=== PATIENT | male | born 1995 | race African-American/Black ===

== ENCOUNTER 2023-06-14 19:22 | Day surgery (SDC) | payer OTHER ==
[~2023-06-14] VITALS: Ht 170.2 cm; Wt 70.0 kg
[2023-06-14] MEDS: NS 1,000 ML IV ONE (20:10)
[2023-06-14] MEDS: MORPHINE 4 MG/ML 1ML VIAL IV ONE ×2 (20:13→21:22)
[2023-06-14] MEDS: ONDANSETRON 4MG 2ML VIAL IV ONE (20:14)
[2023-06-14] MEDS ORDERED: ISOVUE-370 76% 100ML VIAL As Ordered ONE (20:18)
[2023-06-14 20:21] LABS: BASO % 0.1 % (0.0-1.0); EOS % 0.1 % (0.0-3.0); HEMATOCRIT 37.8 % (42.0-52.0); HEMOGLOBIN 12.9 g/dl (13.5-17.5); LYMPH # 1.1 10^3/uL (1.5-5.0); LYMPH % 5.8 % (24.0-44.0); MEAN CORPUSCULAR HEMOGLOBIN 30.1 pg (27.0-33.0); MEAN CORPUSCULAR HGB CONC 34.1 g/dl (32.0-36.5); MEAN CORPUSCULAR VOLUME 88.3 fl (80.0-96.0); MONO # 1.1 10^3/uL (0.0-0.8); MONO % 6.2 % (2.0-8.0); NEUTROPHILS # 15.7 10^3/uL (1.5-8.5); NEUTROPHILS % 87.3 % (36.0-66.0); PLATELET COUNT, AUTOMATED 202 10^3/uL (150-450); RED BLOOD COUNT 4.28 10^6/uL (4.30-6.10)
[2023-06-14 20:48] LABS: ALBUMIN 3.9 G/DL (3.2-5.2); BILIRUBIN,DIRECT 0.3 MG/DL (<0.4); BILIRUBIN,TOTAL 0.9 MG/DL (0.3-1.2); TOTAL PROTEIN 6.9 G/DL (5.7-8.2)
[2023-06-14 21:01] LABS: RSV AMPLIFICATION NEGATIVE (NEGATIVE)
[2023-06-14] MEDS: PIPERACILLIN/TAZOBACTAM SOD 3.375 GM in D5W MINI-BAG PLUS 50 ML IV ONE (21:23)
[2023-06-14] MEDS ORDERED: ACET-897 PO (21:55)
[2023-06-14] MEDS ORDERED: PEPT262S PO (21:55)
[2023-06-14] MEDS ORDERED: HOME MED LIST COMPLETE! XX SCH (22:00)
[2023-06-14] MEDS ORDERED: fentaNYL 100 MCG/2 ML INJECTION As Ordered ONE (22:30)
[2023-06-14] MEDS ORDERED: MIDAZOLAM INJ 2MG/2ML VIAL As Ordered ONE (22:30)
[2023-06-14] MEDS ORDERED: propofoL 200 MG/20 ML VIAL As Ordered ONE (22:30)
[2023-06-14] MEDS ORDERED: ROCURONIUM BROMIDE 50MG/5ML VIAL As Ordered ONE (22:32)
[2023-06-14] MEDS ORDERED: LIDOCAINE 2% 100MG/5ML SDV (FOR ANES.) As Ordered ONE (22:32)
[2023-06-14] MEDS ORDERED: dexmedeTOMIDine (4MCG/ML)200MCG/50ML BTL (PRECEDEX) As Ordered ONE (22:57)
[2023-06-14] MEDS ORDERED: ONDANSETRON 4MG 2ML VIAL As Ordered ONE (22:57)
[2023-06-14] MEDS ORDERED: KETOROLAC 60MG 2ML VIAL As Ordered ONE (22:57)
[2023-06-14] MEDS ORDERED: SUGAMMADEX SODIUM 500 MG/5 ML VIAL (BRIDION) As Ordered ONE (22:57)
[2023-06-14] MEDS ORDERED: ACETAMINOPHEN 1000MG 100ML IV BAG As Ordered ONE (23:02)
[2023-06-14] MEDS ORDERED: DESFLURANE 240 ML INHALANT As Ordered ONE (23:12)
[2023-06-14] MEDS ORDERED: SEVOFLURANE INHAL SOLN 250 ML BTL As Ordered ONE (23:14)
[2023-06-14] MEDS ORDERED: ONDANSETRON 4MG 2ML VIAL IV PRN ×2 (23:45→23:55)
[2023-06-14] MEDS ORDERED: MORPHINE 2 MG/ML 1ML VIAL IV PRN (23:45)
[2023-06-14] MEDS ORDERED: MORPHINE 4 MG/ML 1ML VIAL IV PRN (23:45)
[2023-06-14] MEDS ORDERED: METOCLOPRAMIDE INJ 10MG/2ML VIAL IV PRN ×2 (23:45→23:55)
[2023-06-14] MEDS ORDERED: ACETAMINOPHEN TAB 650MG DOSE (2X325MG) PO PRN (23:45)
[2023-06-14] MEDS ORDERED: oxyCODONE 5MG TAB PO PRN (23:55)
[2023-06-14] MEDS: LR 1,000 ML IV SCH (23:55)
[2023-06-14] MEDS ORDERED: fentaNYL 100 MCG/2 ML INJECTION IV PRN (23:55)
[2023-06-14] MEDS ORDERED: HYDROMORPHONE HCL 0.5 MG/ 0.5 ML SYRINGE IV PRN (23:55)
[2023-06-15] VITALS (13 sets, daily range): BP systolic 103–138; BP diastolic 51–68; TEMP 97–99; O2SAT 2–100
[2023-06-15] MEDS: NS 1,000 ML IV SCH (01:04)
[2023-06-15] MEDS: PIPERACILLIN/TAZOBACTAM SOD 3.375 GM in D5W MINI-BAG PLUS 50 ML IV SCH (02:41)
[2023-06-15] MEDS: KETOROLAC 30 MG/ML 1ML VIAL IV SCH (05:22)
[2023-06-15] MEDS: PANTOPRAZOLE 40MG VIAL IV SCH (09:24)
[2023-06-16 00:17] VITALS: BP 122/57; TEMP 97.4; O2SAT 100
[2023-06-16] MEDS: MORPHINE 2 MG/ML 1ML VIAL IV PRN (02:25)
[2023-06-16 06:31] VITALS: BP 121/60; TEMP 96.9; O2SAT 100
[2023-06-16 10:00] VITALS: BP 127/59; TEMP 98.6; O2SAT 100
== END 2023-06-16 12:53 | disposition home or self-care (01) ==
LOC: M ED 19:22 → EDBD 19:22 → M SDC 19:23 → M MS4PR 06-15 01:00 → M SDC 06-15 01:00 → M MS4PR 06-16 12:53
PROVIDERS: ATTEND Surgery
DX: K35.80 Unspecified acute appendicitis (principal)
CPT/HCPCS: 44970; 74177; 80047; 80076; 81001; 83605; 83690; 85025; 87040; 87631; 88304; 93041; 99285; C9113; J0131; J0665; J1100; J1885; J2250; J2405; J2543; J3010; Q9967

== ENCOUNTER → 2023-11-01 | Outpatient (CLI) | payer OTHER ==
[~2023-11-01] MED LIST: ACET-897 PO; PEPT262S PO
== END ==
LOC: M SOG 07:52
PROVIDERS: ATTEND Physician Assistant
DX: M25.532 Pain in left wrist (principal)

== ENCOUNTER 2024-05-28 21:36 | Emergency (ER) | payer OTHER ==
[~2024-05-28] VITALS: Ht 167.6 cm; Wt 81.1 kg
[2024-05-29] MEDS: IPRATROPIUM 0.5MG/ALBUTEROL 2.5MG INH SOL UD 3ML (DUONEB) NEB ONE (01:45)
[2024-05-29] MEDS: BENZONATATE 100MG CAPSULE PO ONE (01:52)
[2024-05-29] MEDS ORDERED: BENZ200C70 PO (02:06)
[2024-05-29] MEDS ORDERED: VENTAER INH (02:06)
[2024-05-29] MEDS ORDERED: PRED20TA PO (02:06)
[2024-05-29] MEDS: ALBUTEROL 90 MCG/ACT 8GM HFA INHALER INH ONE (02:58)
[2024-05-29 02:59] VITALS: BP 130/82; TEMP 98; O2SAT 99
== END 2024-05-29 03:01 | disposition home or self-care (01) ==
LOC: M ED 21:36
DX: J06.9 Acute upper respiratory infection, unspecified (principal); J45.909 Unspecified asthma, uncomplicated; Z79.1 Long term (current) use of non-steroidal anti-inflammatories (NSAID); Z79.51 Long term (current) use of inhaled steroids; Z79.52 Long term (current) use of systemic steroids

== ENCOUNTER 2024-06-05 18:52 | Emergency (ER) | payer OTHER ==
[~2024-06-05] VITALS: Ht 157.5 cm; Wt 82.8 kg
[~2024-06-05 18:52] MED LIST changes: +BENZ200C70 PO; +PRED20TA PO; +VENTAER INH
[2024-06-05] MEDS ORDERED: PRED10TA2 PO (20:43)
[2024-06-05] MEDS ORDERED: ROBI1LIQ9 PO (20:43)
[2024-06-05 21:02] VITALS: BP 136/81; TEMP 98; O2SAT 97
== END 2024-06-05 21:04 | disposition home or self-care (01) ==
LOC: M ED 18:52
DX: J06.9 Acute upper respiratory infection, unspecified (principal); B34.1 Enterovirus infection, unspecified; Z79.1 Long term (current) use of non-steroidal anti-inflammatories (NSAID); Z79.51 Long term (current) use of inhaled steroids; Z79.52 Long term (current) use of systemic steroids